=== PATIENT | female | born 2000 | race Two or more races ===

== ENCOUNTER 2024-01-31 08:30 | Emergency (ER) | payer SELFPAY ==
[~2024-01-31] VITALS: Ht 170.2 cm; Wt 106.7 kg
[2024-01-31] MEDS ORDERED: CLIN1CAP70 PO (09:35)
[2024-01-31] MEDS ORDERED: IBUP-1456 PO (09:35)
[2024-01-31] MEDS: IBUPROFEN 800 MG TAB PO ONE (09:39)
[2024-01-31] MEDS: cefTRIAXone SOD 1,000 MG VL IM ONE (09:56)
[2024-01-31] MEDS: LIDOCAINE 1% HCL (LOCAL ANESTH.) INJ 20ML MDV ONE (09:57)
[2024-01-31 10:27] VITALS: BP 113/66; PULSE 83; RESP 20; TEMP 98.2; O2SAT 98
== END 2024-01-31 10:36 | disposition home or self-care (01) ==
LOC: ER 08:30
DX: K04.7 Periapical abscess without sinus (principal); Z79.899 Other long term (current) drug therapy
CPT/HCPCS: 96372; 99283; J0696; J2001

== ENCOUNTER 2025-02-10 10:12 | Emergency (ER) | payer MEDICAID ==
[~2025-02-10] VITALS: Ht 170.2 cm; Wt 91.0 kg
[~2025-02-10 10:12] MED LIST: CLIN1CAP70 PO; IBUP-1456 PO
[2025-02-10 10:13] VITALS: BP 106/64; PULSE 84; RESP 16; TEMP 98.6; O2SAT 96
--- NOTE | 2025-02-10 10:34 | ED.PDOC ---
General HPI Comments THIS IS A 24 YEAR OLD FEMALE PRESENTING TO THE ED WITH CHIEF COMPLAINT OF DYSURIA. PATIENT REPORTS THAT SHE HAS BEEN EXPERIENCING PAINFUL URINATION WITH ASSOCIATED SUPRAPUBIC PAIN AND VAGINAL BLEEDING FOR THE PAST 6 DAYS. PATIENT RELAYS THAT HER LMP WAS ON 01/10/25. PATIENT DENIES ANY NAUSEA, VOMITING, DIARRHEA, FEVER, CHILLS, HEMATURIA, OR FLANK PAIN. NO FURTHER SYMPTOMS OR CONCERNS DURING TREATMENT. NO OTHER SYMPTOMS REPORTED AT THIS TIME OF CARE. Chief Complaint: Vaginal Bleed Time Seen by MD: 10:33 Primary Care Provider: NONE Reviewed notes: Nurses Notes, Medications, Allergies Allergies: Coded Allergies: NO KNOWN ALLERGIES (Unverified , 01/31/24) Home Meds Active Scripts Ibuprofen (Ibuprofen) 800 Mg Tab, 1 TAB PO TID, #30 TAB Prov:RAULITO MINAYA 01/31/24 Clindamycin Hcl (Clindamycin Hcl) 300 Mg Cap, 300 MG PO QID, #32 CAP Prov:RAULITO MINAYA 01/31/24 Information Source: Patient Mode of Arrival: Ambulatory Severity: Moderate Timing: Days Duration: Since onset, Days Prehospital treatment: None Onset: Spontaneous Symptoms: Dysuria History of: None Location: Suprapubic associated signs and symptoms: Abdominal Pain, Dysuria Past Medical History PAST MEDICAL HISTORY: Denies Surgical History: Denies all surgeries SLASHER SAWYER History: No Pertinent SLASHER SAWYER History Family History Family History: Reviewed,noncontributory to illness Social History Smoker: Non-Smoker Alcohol: Denies ETOH Use Drugs: Denies Drug Use Lives In: Home Constitutional: denies: chills, diaphoresis, fatigue, fever, malaise, sweats, weakness, others EENTM: denies: blurred vision, double vision, ear bleeding, ear discharge, ear drainage, ear pain, ear ringing, eye pain, eye redness, hearing loss, mouth pain, mouth swelling, nasal discharge, nose bleeding, nose congestion, nose pain, photophobia, tearing, throat pain, throat swelling, voice changes, others Respiratory: denies: cough, hemoptysis, orthopnea, SOB at rest, shortness of breath, SOB with excertion, stridor, wheezing, others Cardiovascular: denies: chest pain, dizzy spells, diaphoresis, Dyspnea on exertion, edema, irregular heart beat, left arm pain, lightheadedness, palpitations, PND, syncope, others Gastrointestinal: denies: abdomen distended, abdominal pain, blood streaked bowels, constipated, diarrhea, dysphagia, difficulty swallowing, hematemesis, melena, nausea, poor appetite, poor fluid intake, rectal bleeding, rectal pain, vomiting, others Genitourinary: reports: abnormal vagina bleeding, dysuria, pain (SUPRAPUBIC PAIN ); denies: burning, dyspareunia, flank pain, frequency, hematuria, incontinence, , vagina discharge, urgency, others Neurological: denies: dizziness, fainting, headache, left sided numbness, left sided weakness, numbness, paresthesia, pre-existing deficit, right sided numbness, right sided weakness, seizure, speech problems, tingling, tremors, weakness, others Musculoskeletal: denies: back pain, gout, joint pain, joint swelling, muscle pain, muscle stiffness, neck pain, others Integumetry: denies: bruises, change in color, change in hair/nails, dryness, laceration, lesions, lumps, rash, wounds, others Allergic/Immunocompromised: denies: Difficulty Healing, Frequent Infections, Hives, Itching, others Hematologic/Lymphatic: denies: anemia, blood clots, easy bleeding, easy bruising, swollen glands, others Endocrine: denies: excessive hunger, excessive sweating, excessive thirst, excessive urination, flushing, intolerance to cold, intolerance to heat, unexplained weight gain, unexplained weight loss, others Psychiatric: denies: anxiety, bipolar disorder, depression, hopeless, panic disorder, schizophrenia, sleepless, suicidal, others All Other Systems: Reviewed and Negative Physical Exam General Appearance: No Apparent Distress, Obese HEENT: Normal ENT Inspection, PERRL/EOMI, Pharynx Normal, TMs Normal Neck: Full Range of Motion, Non-Tender, Normal, Normal Inspection Respiratory: Chest Non-Tender, Lungs Clear, No Accessory Muscle Use, No Respiratory Distress, Normal Breath Sounds Cardiovascular: No Edema, No JVD, No Murmur, No Gallop, Normal Peripheral Pulses, Regular Rate/Rhythm Breast Exam: Deferred Gastrointestinal: No Organomegaly, No Pulsatile Mass, Normal Bowel Sounds, Soft, Suprapubic (TENDERNESS, NO GUARDING AND REBOUND TENDERNESS. ) Genitalia: Deferred Pelvic: Normal External Exam, Tender Uterus, Vaginal Bleeding (MENSTRUAL BLEEDING, NO BLOOD CLOTS. ) Rectal: Deferred Extremities: No calf tenderness, Normal capillary refill, Normal inspection, Normal range of motion, Non-tender, No pedal edema Musculoskeletal : Apperance: Normal Neurologic: Alert, chairman [employer] II-XII nml as Tested, No Motor Deficits, Normal Affect, Normal Mood, No Sensory Deficits Cerebellar Function: Normal Reflexes: Normal Skin: Dry, Normal Color, Warm Peripheral Pulses: 2+ carotid (R), 2+ carotid (L) Lymphatic: No Adenopathy Was a procedure done? Was a procedure done?: No Differential Diagnosis Kidney stone (Female): N/A Kidney stone (Male): N/A Penile/Scrotal: N/A Urinary Problem (Male): N/A Urinary Problem (Female): Intrauterine , Urinary retention, Urolithiasis, UTI X-Ray, Labs, Meds, VS Vital Signs Date Time Temp Pulse Resp B/P (MAP) Pulse Ox O2 Delivery O2 Flow Rate FiO2 02/10/25 10:13 98.6 84 16 106/64 96 98.6 Lab Test 02/10/25 10:38 02/10/25 10:29 Range/Units White Blood Count 9.1 4.4-10.8 10^3/uL Red Blood Count 4.61 4.0-5.20 10^6/uL Hemoglobin 12.2 12.2-16.2 g/dL Hematocrit 37.1 36.0-46.0 % Mean Corpuscular Volume 80.6 80.0-100.0 fL Mean Corpuscular Hemoglobin 26.4 L 28.0-32.0 pg Mean Corpuscular Hemoglobin Concent 32.7 32.0-36.0 g/dL Red Cell Distribution Width 15.5 H 11.8-14.3 % Platelet Count 288 140-450 10^3/uL Mean Platelet Volume 10.0 6.9-10.8 fL Neutrophils (%) (Auto) 75.3 37.0-80.0 % Lymphocytes (%) (Auto) 20.8 10.0-50.0 % Monocytes (%) (Auto) 3.5 0.0-12.0 % Eosinophils (%) (Auto) 0.2 0.0-7.0 % Basophils (%) (Auto) 0.2 0.0-2.0 % Neutrophils # (Auto) 6.9 1.6-8.6 10 ^3/uL Lymphocytes # (Auto) 1.9 0.4-5.4 10 ^3/uL Monocytes # (Auto) 0.3 0-1.3 10 ^3/uL Eosinophils # (Auto) 0 0-0.8 10 ^3/uL Basophils # (Auto) 0 0-0.2 10 ^3/uL Nucleated Red Blood Cells 0.1 % Sodium Level 140 136-145 mmol/L Potassium Level 3.4 L 3.5-5.1 mmol/L Chloride Level 106 98-107 mmol/L Carbon Dioxide Level 25 20-31 mmol/L Anion Gap 9 5-15 Blood Urea Nitrogen 5 L 9-23 mg/dL Creatinine 0.75 0.550-1.02 mg/dL Glomerular Filtration Rate Calc 113 >90 mL/min BUN/Creatinine Ratio 6.7 L 10.0-20.0 Serum Glucose 103 74-106 mg/dL Calcium Level 9.4 8.7-10.4 mg/dL Beta HCG, Quantitative 871.3 H 1.5-4.2 mIU/mL Urine Color Light-red Yellow Urine Clarity Ex.turbid Clear Urine pH 5.5 5.0-9.0 Urine Specific [place] 1.027 1.001-1.035 Urine Protein 2+ H Negative Urine Ketones 1+ H Negative Urine Blood 3+ H Negative /uL Urine Nitrite Negative Negative Urine Bilirubin Negative Negative Urine Urobilinogen Normal Negative mg/dL Urine Leukocyte Esterase 2+ Negative /uL Urine RBC 8274 0 - 4 /hpf Urine WBC Clumps Present None Seen /hpf Urine Microscopic WBC 373 H 0-5 /HPF Urine Squamous Epithelial Cells Few <5 /hpf Urine Bacteria None seen None Seen /hpf Urine Mucus Few None Seen Urine Glucose Normal Normal mg/dL Urine Test Positive Negative X-Ray, Labs, Meds, VS Comment EXTERNAL MEDICAL RECORDS REVIEWED: [NONE] INDEPENDENT HISTORIANS: [NONE] SOCIAL DETERMINANTS OF HEALTH: [NONE] LABS ORDERED: UA, CBC, BMP, PREG URINE, BHCG QUANT REVIEWED AND INTERPRETED RESULTS: OB US IMAGING ORDERED: OB US TREATMENTS ORDERED: NONE PROCEDURES PERFORMED: NONE CRITICAL CARE TIME: NONE I HAVE DISCUSSED THE PATIENT WITH THE ATTENDING PHYSICIAN DR. KAISER AND HE AGREES WITH THE PATIENT'S PLAN OF CARE AND DISPOSITION. PATIENT ELOPED FROM ED PRIOR TO HAVING IMAGING STUDIES PERFORMED. Time of 1ST Reevaluation: 13:00 Reevaluation 1ST: Unchanged Patient Education/Counseling: Diagnosis, Treatment Family Education/Counseling: Diagnosis, Treatment, No Family Present SEPSIS Sepsis Screen Date sepsis recognized/suspect: Feb 10, 2025 Time Sepsis recognized/suspect: 1014 Recent Procedure: No On Antibiotic Therapy: No Respiratory Rate >20: No Heart Rate >90: No Temp<36 C (96.8 F) or >38.3 C: No SBP <90 or MAP <65 mmHG: No New Acute Mental Status Change: No Is the patient on CPAP, BIPAP,: No Physician Orders Ob Ultrasound Comp Less 14wks (02/10/25 12:25) Vital Signs Date Time Temp Pulse Resp B/P (MAP) Pulse Ox O2 Delivery O2 Flow Rate FiO2 02/10/25 10:13 98.6 84 16 106/64 96 98.6 Laboratory Tests Test 02/10/25 10:38 White Blood Count 9.1 10^3/uL (4.4-10.8) Departure 1 Departure Time of Disposition: 13:00 Impression: Primary Impression: Vaginal bleeding Additional Impressions: Positive blood test UTI (urinary tract infection) Qualified Codes: N30.00 - Acute cystitis without hematuria Disposition: 07 LEFT AWOL/ELOPED Condition: Stable Critical Care Note Critical Care Time?: No Stability Stability form required: No Heart Score Heart Score: Heart Score Response (Comments) Value History N/A 0 EKG N/A 0 Age N/A 0 Risk Factors N/A 0 Troponin N/A 0 Total 0 I personally scribed for RAULITO MINAYA ([email or web address]) on 02/10/25 at 10:34. Electronically submitted by Rommel Rojas ([email or web address]). I personally scribed for RAULITO MINAYA ([email or web address]) on 02/10/25 at 12:57. Electronically submitted by Rommel Rojas ([email or web address]). RAULITO MINAYA Feb 10, 2025 10:34
[2025-02-10 11:06] LABS: Urine Protein, UAD 2+ (Negative); Urine WBC Clumps PRESENT /hpf (None Seen)
[2025-02-10 11:23] LABS: Hematocrit 37.1 % (36.0-46.0); Hemoglobin 12.2 g/dL (12.2-16.2); Mean Corpuscular Hemoglobin 26.4 pg (28.0-32.0); Mean Corpuscular Volume 80.6 fL (80.0-100.0); Nucleated Red Blood Cells % 0.1 %
[2025-02-10 11:33] LABS: Chloride 106 mmol/L (98-107); Sodium 140 mmol/L (136-145)
[2025-02-10 11:34] LABS: Anion Gap 9 (5-15); Carbon Dioxide 25 mmol/L (20-31); Potassium 3.4 mmol/L (3.5-5.1)
[2025-02-10 11:35] LABS: Calcium 9.4 mg/dL (8.7-10.4)
[2025-02-10 11:39] LABS: Glucose 103 mg/dL (74-106)
[2025-02-10 11:40] LABS: BUN/Creatinine Ratio 6.7 (10.0-20.0); Blood Urea Nitrogen 5 mg/dL (9-23)
== END 2025-02-10 13:03 | disposition left against medical advice (07) ==
LOC: ER 10:12
DX: O20.9 Hemorrhage in early pregnancy, unspecified (principal); O23.41 Unspecified infection of urinary tract in pregnancy, first trimester; N39.0 Urinary tract infection, site not specified
CPT/HCPCS: 36415; 80048; 81001; 81025; 84702; 85025